=== PATIENT | male | born 1960 | race Caucasian/White ===

== ENCOUNTER 2020-07-12 10:58 | Emergency (ER) | payer SELFPAY ==
[2020-07-12 11:37] VITALS: BP 185/83; PULSE 82; RESP 18; TEMP 37.6; O2SAT 98; BMI 59.8
--- NOTE | 2020-07-12 11:59 | ED_ITS ---
HPI - Male Genitourinary General Chief complaint: Urogenital-Male Stated complaint: URINARY ISSUE Time Seen by Provider: 07/12/20 11:59 Source: patient Mode of arrival: ambulatory Limitations: no limitations History of Present Illness HPI Narrative: urinating blood at times. intermittent, then cleared. Then developed dysuria, patient has never been told that he has a prostate problem. Now with increased difficulty urinating. Related Data Previous Rx's Medication Instructions Recorded levofloxacin 500 mg PO DAILY 10 Days #10 tab 07/12/20 tamsulosin [Flomax] 0.4 mg PO DAILY #20 cap 07/12/20 Allergies Allergy/AdvReac Type Severity Reaction Status Date / Time No Known Allergies Allergy Verified 07/12/20 11:35 Review of Systems Constitutional: Constitutional: Reports no additional constitutional complaints Eyes: Eyes: Reports no additional eye complaints ENT: Denies dizziness Cardiovascular: Cardiovascular: Reports no additional cardiovascular complaints Respiratory: Respiratory: Reports as per HPI Gastrointestinal: Gastrointestinal: Reports no additional gastrointestinal complaints Musculoskeletal: Musculoskeletal: Reports no additional musculoskeletal complaints Integumentary/Breasts: Skin/Breast: Denies rash Neurologic: Reports system reviewed and no additional complaints, except as documented, Denies dizziness and Denies Sensory deficit (Neuro) Psychiatric: Psychiatric: Denies anxiety [facility] Past Medical History Medical History (Updated 07/12/20 @ 14:50 by Nico Amezcua MD) Healthy adult Social History Social History Advance Directives: No Advance Directives Information Provided: No Physical Exam Vital Signs: Vital Signs: Last Vital Signs Temp 99.6 F 07/12/20 11:37 Pulse 82 07/12/20 11:37 Resp 18 07/12/20 11:37 BP 185/83 H 07/12/20 11:37 Pulse Ox 98 07/12/20 11:37 Body Mass Index 59.8 Const: General: healthy appearing Nutritional Appearance: average body habitus Orientation/consciousness: oriented to person and patient oriented x3 Limitations: no limitations HENMT: Head: Yes normal to inspection Ears: external ears normal General nose exam: Normal external nose present Mouth: Normal oral and palatal mucosa present and oropharynx normal Throat: Yes posterior oropharynx normal Eyes: General: appearance normal, both eyes and all related structures Neck: Other: supple Neck: Yes normal visual inspection Chest: Chest palpation & inspection: normal inspection of the chest Resp: Auscultation: clear to auscultation bilaterally Cardio: Jugular venous distension: no JVD Rate: regular rate Rhythm: regular rhythm Heart sounds: S1 normal heart sound present and S2 normal heart sound present GI: Inspection: Yes normal to inspection Palpation (GI): Soft to palpation, nontender and No hepatosplenomegaly present Auscultation: normal bowel sounds : Other: very large prostate on rectal exam General: Yes no CVA tenderness Back/Spine/Pelvis: Back: no CVA tenderness Skin: General skin exam: no rashes or lesions noted Neuro: General: oriented to person and patient oriented x3 Cranial nerves: Yes CN's II-XII intact bilaterally Motor exam (neuro): 5/5 motor strength present throughout Sensory Exam: No Sensory deficit (Neuro) Extrem: General: Yes normal to inspection Psych: Appearance: grossly normal Course Course Course Narrative: resting comfortably will dc home MDM - Male Genitourinary MDM Narrative Medical decision making narrative: History and physical consistent with prostatis. Will start flomax and abx and follow up with urology Differential Diagnosis Differential diagnosis: Likely prostatitis Lab Data Result diagrams: 07/12/20 12:40 07/12/20 12:40 Labs: Lab Results 07/12/20 07/12/20 07/12/20 Range/Units 12:40 12:40 12:40 WBC 11.8 H (4.8-10.8) X10*3/uL RBC 4.81 (4.60-5.80) X10*6/uL Hgb 15.9 (14.0-18.0) g/dl Hct 48.1 (42-52) % MCV 100.0 H (80-98) fL MCH 33.1 H (27.0-33.0) pg MCHC 33.1 (31.0-36.0) g/dl RDW 11.1 (11.0-16.0) % Plt Count 268 (160-400) X10*3/uL MPV 12.4 (9.4-12.4) fL Immature Gran % (Auto) 0.4 (0.0-0.4) % Neut % (Auto) 78.0 H (45-73) % Lymph % (Auto) 12.2 L (20-40) % Taylor % (Auto) 7.4 (2-11) % Eos % (Auto) 1.4 (0-4) % Baso % (Auto) 0.6 (0-2) % Lymph # (Auto) 1.4 (1.2-4.9) X10*3/uL Taylor # (Auto) 0.9 (0.1-1.2) X10*3/uL Eos # (Auto) 0.2 (0.0-0.4) X10*3/uL Baso # (Auto) 0.1 (0.0-0.2) X10*3/uL Abs Immat Gran (auto) 0.05 H (0.00-0.03) X10*3/uL Absolute Neuts (auto) 9.2 H (2.0-8.3) X10*3/uL Absolute Nucleated RBC 0.000 (0.0-0.012) X10*3/uL Nucleated RBC % (auto) 0.0 (0.0-0.2) /100WBC Sodium 135 (135-145) mmol/L Potassium 4.7 (3.3-5.1) mmol/l Chloride 101 (96-108) mmol/L Carbon Dioxide 26 (22-29) mmol/L Anion Gap 13 (12-20) BUN 16 (9-16) mg/dL Creatinine 1.13 (0.5-1.4) mg/dL Estim Creat Clear Calc 99.4 Estimated GFR > 60 Random Glucose 86 (60-115) mg/dL Calcium 9.3 (8.4-10.2) mg/dL Urine Color YELLOW Urine Appearance CLOUDY Urine pH 6.0 (5.0-8.0) Ur Specific [place] >= 1.030 H (1.005-1.025) Urine Protein 2+ H (NEG-TRACE) MG/DL Urine Glucose (UA) NEG (NEG) MG/DL Urine Ketones NEG (NEG) MG/DL Urine Blood 3+ H (NEG) Urine Nitrite NEG (NEG) Ur Leukocyte Esterase 1+ H (NEG) Urine RBC 10-14 H (0) /HPF Urine WBC 15-29 H (0-4) /HPF Ur Squamous Epith Cells TRACE /LPF Urine Bacteria NONE /LPF 07/12/ Range/Units 12:40 WBC (4.8-10.8) X10*3/uL RBC (4.60-5.80) X10*6/uL Hgb (14.0-18.0) g/dl Hct (42-52) % MCV (80-98) fL MCH (27.0-33.0) pg MCHC (31.0-36.0) g/dl RDW (11.0-16.0) % Plt Count (160-400) X10*3/uL MPV (9.4-12.4) fL Immature Gran % (Auto) (0.0-0.4) % Neut % (Auto) (45-73) % Lymph % (Auto) (20-40) % Taylor % (Auto) (2-11) % Eos % (Auto) (0-4) % Baso % (Auto) (0-2) % Lymph # (Auto) (1.2-4.9) X10*3/uL Taylor # (Auto) (0.1-1.2) X10*3/uL Eos # (Auto) (0.0-0.4) X10*3/uL Baso # (Auto) (0.0-0.2) X10*3/uL Abs Immat Gran (auto) (0.00-0.03) X10*3/uL Absolute Neuts (auto) (2.0-8.3) X10*3/uL Absolute Nucleated RBC (0.0-0.012) X10*3/uL Nucleated RBC % (auto) (0.0-0.2) /100WBC Sodium (135-145) mmol/L Potassium (3.3-5.1) mmol/l Chloride (96-108) mmol/L Carbon Dioxide (22-29) mmol/L Anion Gap (12-20) BUN (9-16) mg/dL Creatinine (0.5-1.4) mg/dL Estim Creat Clear Calc Estimated GFR Random Glucose (60-115) mg/dL Calcium (8.4-10.2) mg/dL Urine Color Cancelled Urine Appearance Cancelled Urine pH Cancelled (5.0-8.0) Ur Specific [place] Cancelled (1.005-1.025) Urine Protein Cancelled (NEG-TRACE) MG/DL Urine Glucose (UA) Cancelled (NEG) MG/DL Urine Ketones Cancelled (NEG) MG/DL Urine Blood Cancelled (NEG) Urine Nitrite Cancelled (NEG) Ur Leukocyte Esterase Cancelled (NEG) Urine RBC (0) /HPF Urine WBC (0-4) /HPF Ur Squamous Epith Cells /LPF Urine Bacteria /LPF Discharge Plan Discharge Clinical Impression: Prostatitis Qualifiers: Prostatitis type: chronic Qualified Code(s): N41.1 - Chronic prostatitis Benign prostatic hyperplasia Qualifiers: Lower urinary tract symptom presence: symptoms present Lower urinary tract symptom detail: urinary frequency Qualified Code(s): N40.1 - Benign prostatic hyperplasia with lower urinary tract symptoms Patient Disposition: Home, Self-Care Instructions: Prostatitis (ED), Enlarged Prostate (BPH) (ED) Prescriptions: New levofloxacin 500 mg tablet 500 mg PO DAILY 10 Days Qty: 10 RF: 0 tamsulosin [Flomax] 0.4 mg capsule 0.4 mg PO DAILY Qty: 20 RF: 0 Referrals: Elvis Rojas MD [Physician] - 2 days
[2020-07-12 12:50] LABS: MANUAL DIFF FLAG NO
[2020-07-12 12:52] LABS: Basophils Absolute Auto 0.1 X10*3/uL (0.0-0.2); Basophils Percent Auto 0.6 % (0-2); Eosinophils Absolute Auto 0.2 X10*3/uL (0.0-0.4); Eosinophils Percent Auto 1.4 % (0-4); Hematocrit 48.1 % (42-52); Hemoglobin 15.9 g/dl (14.0-18.0); Imm Gran Abs Auto 0.05 X10*3/uL (0.00-0.03); Imm Gran Pct Auto 0.4 % (0.0-0.4); Lymphocytes Absolute Auto 1.4 X10*3/uL (1.2-4.9); Lymphocytes Percent Auto 12.2 % (20-40); Mean Corpuscular HGB Conc 33.1 g/dl (31.0-36.0); Mean Corpuscular Hemoglobin 33.1 pg (27.0-33.0); Mean Platelet Volume 12.4 fL (9.4-12.4); Monocytes Absolute Auto 0.9 X10*3/uL (0.1-1.2); Monocytes Percent Auto 7.4 % (2-11); Neutrophils Absolute Auto 9.2 X10*3/uL (2.0-8.3); Platelet Count 268 X10*3/uL (160-400); Red Blood Count 4.81 X10*6/uL (4.60-5.80); Red Cell Distribution Width 11.1 % (11.0-16.0); White Blood Count 11.8 X10*3/uL (4.8-10.8)
[2020-07-12 13:06] LABS: Glucose Urine UA NEG (NEG); Leukocyte Esterase Urine 1+ (NEG); Nitrite Urine NEG (NEG); Specific Gravity - Urine >= 1.030 (1.005-1.025); Urine Blood 3+ (NEG); Urine Ketones NEG (NEG); Urine Protein 2+ MG/DL (NEG-TRACE)
[2020-07-12 13:08] LABS: Appearance Urine CLOUDY; Color Urine YELLOW
[2020-07-12 13:13] LABS: Anion Gap 13 (12-20); Blood Urea Nitrogen 16 mg/dL (9-16); Calcium 9.3 mg/dL (8.4-10.2); Carbon Dioxide 26 mmol/L (22-29); Chloride 101 mmol/L (96-108); Creatinine Clr Calc Pharmacy 99.4; Estimated Glomerular Filt Rate > 60; Glucose Random 86 mg/dL (60-115); Potassium 4.7 mmol/l (3.3-5.1); Sodium 135 mmol/L (135-145)
[2020-07-12 13:21] LABS: Squamous Epithelial Cell Urine TRACE /LPF
== END 2020-07-12 15:13 | disposition home or self-care (01) ==
PROVIDERS: Emergency Provider Emergency Medicine
DX: N41.1 Chronic prostatitis (principal); N40.1 Benign prostatic hyperplasia with lower urinary tract symptoms; R30.0 Dysuria; Z79.899 Other long term (current) drug therapy
CPT/HCPCS: 36415; 80048; 81001; 81003; 85025; 87086; 99283

== ENCOUNTER 2020-07-26 10:45 | Outpatient (REF) | payer MEDICAID, SELFPAY | END 2020-07-26 10:46 | disposition home or self-care (01) | LOC: CF 10:45 | PROVIDERS: Visit Provider Urology | DX: N40.1 Benign prostatic hyperplasia with lower urinary tract symptoms (principal); N13.8 Other obstructive and reflux uropathy; R31.0 Gross hematuria | CPT/HCPCS: 51798; 81002; 88112; 99202 ==

== ENCOUNTER → 2020-08-25 12:50 | Outpatient (BNVA) | payer MEDICAID, SELFPAY | PROVIDERS: Visit Provider Urology | DX: N40.1 Benign prostatic hyperplasia with lower urinary tract symptoms (principal); N39.0 Urinary tract infection, site not specified; N13.8 Other obstructive and reflux uropathy; R31.0 Gross hematuria | CPT/HCPCS: 81002; 99212 ==

== ENCOUNTER 2020-08-30 15:01 | Outpatient (REF) | payer MEDICAID, SELFPAY | END 2020-08-30 15:02 | disposition home or self-care (01) | LOC: HO.LNP 15:01 | PROVIDERS: Visit Provider Urology | DX: N39.0 Urinary tract infection, site not specified (principal) | CPT/HCPCS: 87086 ==

== ENCOUNTER 2020-09-13 11:04 | Outpatient (REF) | payer MEDICAID, SELFPAY | END 2020-09-13 11:05 | disposition home or self-care (01) | LOC: HO.LAB 11:04 | PROVIDERS: Visit Provider Urology | DX: N39.0 Urinary tract infection, site not specified (principal) | CPT/HCPCS: 87086 ==

== ENCOUNTER → 2020-09-30 08:41 | Outpatient (BNVA) | payer MEDICAID, SELFPAY | PROVIDERS: PCP Internal Medicine; Visit Provider Urology | DX: R31.0 Gross hematuria (principal); N39.0 Urinary tract infection, site not specified; N40.1 Benign prostatic hyperplasia with lower urinary tract symptoms; N13.8 Other obstructive and reflux uropathy | CPT/HCPCS: 81002; 99212 ==

== ENCOUNTER 2020-10-07 14:57 | Outpatient (REF) | payer MEDICAID, SELFPAY ==
--- NOTE | ~2020-10-07 | CT_ITS ---
EXAMINATION: CT ABDOMEN AND PELVIS WITHOUT AND WITH CONTRAST CLINICAL INFORMATION: Gross hematuria COMPARISON: None. TECHNIQUE: Noncontrast CT of the abdomen and pelvis is performed followed by split bolus contrast-enhanced images using 85 mL Omnipaque 350 contrast.? Postcontrast imaging is performed during the combined nephrogram and excretion phase. Sagittal and coronal reformatted images were obtained on the technologist's workstation for both the precontrast and postcontrast phases. This CT examination was performed using dose optimization techniques as appropriate, variously including the following: *Automated exposure control *Adjustment of mA and/or kV according to patient size (this includes techniques or standardized protocols for targeted exams where dose is matched to indication/reason for exam; i.e. extremities or head) *Use of iterative reconstruction technique DLP: 508 mGy-cm FINDINGS: LUNG BASES: The visualized lung bases are clear. There is a trace pericardial effusion. LIVER, GALLBLADDER, AND BILIARY TREE: The liver is normal in size, shape, and attenuation. No focal hepatic lesion or biliary ductal dilatation is present. The gallbladder is unremarkable with no evidence of radiopaque gallstones, gallbladder wall thickening, or obvious pericholecystic inflammatory changes. PANCREAS: Unremarkable. SPLEEN: There are 2 small peritoneal nodules anterior the spleen measuring 5 and 3 mm axial image 11 series 8 questionable for splenules. ADRENAL GLANDS: Unremarkable. KIDNEYS AND URETERS: The right kidney measures 9 and the left 12 cm in length. There is mild right renal cortical thinning. There is severe right hydronephrosis and ureteral dilatation down to the bladder. There is no excretion of contrast opacifying the right renal collecting system or ureter. There is no left hydronephrosis. There is mild dilatation of the left distal ureter. There is marked irregularity and narrowing of the left distal ureter in the wall of the bladder. No renal stone, mass or hydronephrosis is seen. BLADDER: There is high attenuation material in the bladder precontrast suggestive of hemorrhage. There is a large partially necrotic bladder mass along the right lateral, inferior and posterior bladder wall. This obstructs the right distal ureter. This involves the left ureteral insertion and narrows this as well.. This is irregular in shape and difficult to measure but measures at least 7 cm. This is irregular in shape with the excreted contrast in the bladder suggestive of a fungating or ulcerative lesion. There is extensive infiltration of the perivesicular fat. No definite enlarged perivesicular lymph nodes are seen. GASTROINTESTINAL TRACT: The small and large bowel are unremarkable. The appendix is unremarkable. ABDOMINAL WALL: There is a small umbilical hernia containing fat. LYMPH NODES: There is a prominent left internal iliac lymph node measuring 8 mm axial image 57 series 8. There are small right iliac bifurcation or pelvic sidewall lymph nodes largest measuring 5 mm axial image 56 series 8. VASCULAR: There is evidence of atherosclerotic disease. PELVIC VISCERA: The prostate gland is enlarged measuring approximately 4 x 4.4 cm in AP and transverse dimension. The prostate gland is irregularly shaped and protrudes into the base of the bladder. There are calcifications in the central prostate gland. OSSEUS STRUCTURES: There is severe degenerative disc disease with endplate sclerosis at L5-S1. There are degenerative spondylosis of the lumbar spine and degenerative changes at the hip joints. No fracture or suspicious bone lesion is seen. CT/CT urogram IMPRESSION: Large bladder mass and infiltration of the perivesicular fat suggestive of neoplasm. There is obstruction of the right kidney with moderate right hydronephrosis and ureteral dilatation and no excreted contrast seen in the right collecting system or ureter. This narrows the intramural portion of the left distal ureter and there is mild left distal ureteral dilatation. There are bilateral retroperitoneal pelvic lymph nodes, largest measuring 8 mm on the left. Slightly enlarged irregularly-shaped prostate gland which protrudes into the base of the bladder. Prostate neoplasm cannot be excluded.
[2020-10-07] MEDS: iohexoL 350 MG/ML 100 ML INFUS..BTL 85 ML IV (15:53)
== END 2020-10-07 14:58 | disposition home or self-care (01) ==
LOC: HO.CT 14:57
PROVIDERS: PCP Internal Medicine; Visit Provider Urology
DX: R31.0 Gross hematuria (principal)
CPT/HCPCS: 74178; Q9967

== ENCOUNTER → 2020-10-11 13:47 | Outpatient (BNVA) | payer MEDICAID, SELFPAY | PROVIDERS: PCP Internal Medicine; Visit Provider Urology | DX: Z13.89 Encounter for screening for other disorder (principal) | CPT/HCPCS: 99212 ==

== ENCOUNTER 2020-10-31 07:03 | Day surgery (SDC) | payer MEDICAID, SELFPAY ==
[2020-10-27 09:41] VITALS: BMI 25.7
[2020-10-31] VITALS (21 sets, daily range): BP systolic 127–200; BP diastolic 85–116; PULSE 73–122; RESP 6–131; TEMP 36.1–37; O2SAT 97–100
[2020-10-31] MEDS: levoFLOXacin 500 MG TABLET PO (08:06)
--- NOTE | 2020-10-31 08:27 | HO.ANESPROP2 ---
PMF Active Problems Active Problems: All Active Problems (Updated 10/11/20 @ 14:45 by Elvis Rojas MD) Gross hematuria (Acute) BPH w urinary obs/LUTS (Acute) Recurrent UTI (Acute) Bladder cancer (Acute) Hydronephrosis (Acute) Past Medical History Medical History Healthy adult Hx of smoking Social History Social History Smoking Status: Current every day smoker Advance Directives Information Provided: No Meds Allergies Allergy/AdvReac Type Severity Reaction Status Date / Time No Known Allergies Allergy Verified 09/30/20 09:06 Active Medications: Current Medications Generic Name Dose Route Start Last Admin Trade Name Freq PRN Reason Stop Dose Admin Lactated Ringer's 1,000 mls @ 50 mls/hr 10/31/20 08:30 Lr IV .Q20H JOSIAH Exam Exam Date and Time: October 31, 2020 0827 Height,Weight and Vital Signs: Height 5 ft 4 in Weight 68.039 kg Last Vital Signs Temp 98.6 F 10/31/20 07:57 Pulse 122 H 10/31/20 07:57 Resp 18 10/31/20 07:57 BP 127/90 H 10/31/20 07:57 Pulse Ox 100 10/31/20 07:57 Airway Mallampati Class: III (Poor dentition) TM Dist: >3cm Neck ROM: Full Heart: RrR Lungs: CTA BL Assessment and Plan Assessment Anesthesia Assessment: Anesthesia Plan Discussed and Chart Reviewed Final Anesthetic Review NPO: Yes ASA Class: III Patient Risk: Intermediate Procedure Risk: Intermediate Anesthetic Plan Anesthetic Plan: GA Disposition: Standard PACU
[2020-10-31] MEDS: Lactated Ringers 1,000 ML 50 ML IV (08:36)
--- NOTE | 2020-10-31 09:13 | MHC.SHP ---
Pre-Procedural Eval Section A The patient is an INPATIENT: No Changes since office visit: No Cold of Flu in the past 2 weeks, No New Medical Problems, No Changes in Medication and No Patient answered all questions The History & Physical has been completed within 30 days and I have reviewed it.: Yes Section B Chief Complaint: malignant neoplasm of bladder Allergies: Allergies Allergy/AdvReac Type Severity Reaction Status Date / Time No Known Allergies Allergy Verified 09/30/20 09:06 Plan Diagnosis/Plan: Unchanged I have reviewed the history and physical and performed a pertinent physical examination on my patient. No changes have occurred unless specified. Transurethral bladder tumor resection, bilateral retrogrades potential bilateral stents
--- NOTE | 2020-10-31 10:57 | PM.OP ---
Brief Operative Note Date of Service: 10/31/20 Pre-op diagnosis: Bladder cancer and bilateral hydronephrosis Post-op diagnosis: same Procedure: 1. TURBT large 2. Left retrograde stent placement Implants: Left ureteric stent Surgeon: Elvis Rojas MD Anesthesia: GLMA Estimated blood loss (mL): 10 Pathology: other (bladder) Condition: stable Disposition: same day
--- NOTE | 2020-10-31 11:02 | W.PM.OPN ---
Operative Note Operative Note Date of Service: 10/31/20 Narrative: PreOperative Diagnosis: Bladder cancer with bilateral hydronephrosis Post Operative Diagnosis: Bladder cancer with bilateral hydronephrosis Procedure: 1 TURBT large 2. Left retrograde with left stent placement Surgeon: Dr Elvis Rojas Anesthesia: General Indications for procedure: This is a 60-year-old female who presented to the emergency room in mid July 2020 with gross hematuria. Had been seen in the office but secondary to insurance issues was not able to get CT urogram until beginning of September. Imaging showed a large 6-7 cm mass in the bladder with right hydronephrosis and the starting of left hydronephrosis. There appeared to be perivesical fat invasion. At a minimum this was a clinical T3 lesion. Due to the persistent hematuria and bladder infection recommendation was made for debulking with TURBT. Attempt will be made to place bilateral stents in order to assess for chemotherapy. Procedure: After informed consent was verified the patient was brought to the operating room and placed in a supine position. Anesthesia was administered per protocol. The patient was placed in a modified dorsal lithotomy position and prepped and draped in a sterile fashion. Safety pause time-out was performed. Antibiotics have been given. A well lubricated resectoscope was placed with visual obturator per urethra. There was difficulty entering the bladder. There was a large lobulated mass extending from the right side wall down into prostatic fossa. Prostatic fossa appeared to event previous resection. Mass in his changes seemed to extend from the right side wall down across the midline toward the left side in the area of the trigone. Extensive resection was performed. Great care was taken to keep to the contours of the bladder. The final resected area ran from 2 cm medial of the left ureteric orifice to the 11 o'clock position high on the right bladder wall. It extended from the bladder neck back be on the trigone a total approximately 10 cm. The bladder mucosa throughout was inflamed. It was difficult to tell whether this inflamed tissue was part of the carcinoma process but it appeared to be separate. A large amount of specimen was sent. Total resection time was 100% longer than normal at approximately 01:00 hour. After the extensive resection where identify the left ureteric orifice. This was cannulated and retrograde examination performed. A 6 Gambian by 22 cm double-J ureteric catheter was placed. We were unable to find the right ureteric orifice which was obliterated by the cancer process. The whole area had invasive cancer going to the floor the bladder. At the completion of the resection we used a roller bar in order to obtain sufficient control of anticoagulation. At the completion of the procedure a Omrales catheter was placed without difficulty. He tolerated procedure was extubated in the operating room transferred in stable condition to the recovery area. Pathology: Bladder tumor Drains: Left ureteric stent
[2020-10-31] MEDS: fentaNYL citrate/PF 100 MCG/2 ML VIAL 25 MCG IVPUSH ×4 (11:26→12:30)
[2020-10-31] MEDS: Metoprolol Tartrate 5 MG/5 ML VIAL 2.5 MG IVPUSH ×2 (11:48→13:59)
[2020-10-31] MEDS: Acetaminophen 325 MG TABLET 650 MG PO (11:56)
[2020-10-31] MEDS: oxyCODONE HCl Immed Release 5 MG TABLET PO (11:57)
== END 2020-10-31 15:07 | disposition home or self-care (01) ==
PROVIDERS: PCP Internal Medicine; Visit Provider Urology
PROC: 0TBB8ZZ Excision of Bladder, Via Natural or Artificial Opening Endoscopic (ICD-10-PCS; CPT 52240; principal; 2020-10-31 08:30)
DX: C67.9 Malignant neoplasm of bladder, unspecified (principal); N13.30 Unspecified hydronephrosis; R31.0 Gross hematuria; Z87.891 Personal history of nicotine dependence
CPT/HCPCS: 52240; 52332; 88307; 88341; 88342; C1769; C2617; J1100; J2250; J2405; J3010; Q9967

== ENCOUNTER → 2020-11-03 08:45 | Outpatient (BNVA) | payer MEDICAID, SELFPAY | PROVIDERS: PCP Internal Medicine; Visit Provider Urology | DX: C67.9 Malignant neoplasm of bladder, unspecified (principal); N13.30 Unspecified hydronephrosis | CPT/HCPCS: 99212 ==

== ENCOUNTER → 2020-11-10 08:59 | Outpatient (BNVA) | payer MEDICAID, SELFPAY | PROVIDERS: PCP Internal Medicine; Visit Provider Urology | DX: C67.9 Malignant neoplasm of bladder, unspecified (principal) | CPT/HCPCS: 99212 ==

== ENCOUNTER 2020-11-11 07:06 | Day surgery (SDC) | payer MEDICAID, SELFPAY ==
--- NOTE | ~2020-11-11 | IR_ITS ---
EXAMINATION: IR FLUOROSCOPY NEPHROSTOGRAM CLINICAL INFORMATION: Bladder cancer. Right hydronephrosis. COMPARISON: Previous CT urogram September 2020 TECHNIQUE: Procedure, risks and benefits including bleeding, infection and injury to the kidney were obtained, and informed consent was obtained. The patient was positioned in the prone position. The right flank was prepped and draped in the usual sterile fashion. Using ultrasound guidance and a 22-gauge Chiba needle, right lower pole calyceal access was obtained. Over an .018 wire, an AccuStick system was positioned in the renal pelvis. An .035 Glidewire was advanced through the 6-Faroese dilator down the right ureter. The Glidewire was exchanged for an 035 heavy duty wire. Following serial dilatation, an 8.5-Faroese pigtail nephrostomy tube was positioned. Catheter was positioned in the renal pelvis. Urine was sent for culture and cytology. A formal ultrasound picture was recorded. FINDINGS: The right kidney appears small. There is mild right hydronephrosis. There is mild right ureteral dilatation. No contrast enters the bladder. A left internal ureteral stent is seen. FLUOROSCOPY TIME: 10.6 minutes. The patient received Versed 3 mg and fentanyl 150 mcg intravenously during the procedure. Total sedation time was 40 minutes. Conscious sedation was provided by a registered nurse under my direct supervision monitored the patient's vital signs during the procedure. . DOSE AREA PRODUCT: 1072 mGy-cm2 IR/IR us guide venous access IMPRESSION: 8.5-Faroese right nephrostomy tube placement.
--- NOTE | ~2020-11-11 | IR_ITS ---
EXAMINATION: IR FLUOROSCOPY NEPHROSTOGRAM CLINICAL INFORMATION: Bladder cancer. Right hydronephrosis. COMPARISON: Previous CT urogram September 2020 TECHNIQUE: Procedure, risks and benefits including bleeding, infection and injury to the kidney were obtained, and informed consent was obtained. The patient was positioned in the prone position. The right flank was prepped and draped in the usual sterile fashion. Using ultrasound guidance and a 22-gauge Chiba needle, right lower pole calyceal access was obtained. Over an .018 wire, an AccuStick system was positioned in the renal pelvis. An .035 Glidewire was advanced through the 6-Faroese dilator down the right ureter. The Glidewire was exchanged for an 035 heavy duty wire. Following serial dilatation, an 8.5-Faroese pigtail nephrostomy tube was positioned. Catheter was positioned in the renal pelvis. Urine was sent for culture and cytology. A formal ultrasound picture was recorded. FINDINGS: The right kidney appears small. There is mild right hydronephrosis. There is mild right ureteral dilatation. No contrast enters the bladder. A left internal ureteral stent is seen. FLUOROSCOPY TIME: 10.6 minutes. The patient received Versed 3 mg and fentanyl 150 mcg intravenously during the procedure. Total sedation time was 40 minutes. Conscious sedation was provided by a registered nurse under my direct supervision monitored the patient's vital signs during the procedure. . DOSE AREA PRODUCT: 1072 mGy-cm2 IR/IR nephrostomy IMPRESSION: 8.5-Faroese right nephrostomy tube placement.
[2020-11-11 07:15] VITALS: BMI 23.1
--- NOTE | 2020-11-11 07:28 | PC.NURSE ---
0712am called for lab. 0725 recalled for lab draw.
[2020-11-11 07:40] LABS: MANUAL DIFF FLAG NO
[2020-11-11 07:42] LABS: Basophils Absolute Auto 0.1 X10*3/uL (0.0-0.2); Basophils Percent Auto 0.9 % (0-2); Eosinophils Absolute Auto 0.1 X10*3/uL (0.0-0.4); Eosinophils Percent Auto 1.1 % (0-4); Hematocrit 42.2 % (42-52); Hemoglobin 13.7 g/dl (14.0-18.0); Imm Gran Abs Auto 0.06 X10*3/uL (0.00-0.03); Imm Gran Pct Auto 0.5 % (0.0-0.4); Lymphocytes Absolute Auto 1.3 X10*3/uL (1.2-4.9); Lymphocytes Percent Auto 10.2 % (20-40); Mean Corpuscular HGB Conc 32.5 g/dl (31.0-36.0); Mean Corpuscular Hemoglobin 30.8 pg (27.0-33.0); Mean Corpuscular Volume 94.8 fL (80-98); Mean Platelet Volume 11.8 fL (9.4-12.4); Monocytes Absolute Auto 1.1 X10*3/uL (0.1-1.2); Monocytes Percent Auto 8.5 % (2-11); Neutrophils Absolute Auto 9.9 X10*3/uL (2.0-8.3); Neutrophils Percent Auto 78.8 % (45-73); Platelet Count 331 X10*3/uL (160-400); Red Blood Count 4.45 X10*6/uL (4.60-5.80); Red Cell Distribution Width 11.9 % (11.0-16.0); White Blood Count 12.5 X10*3/uL (4.8-10.8)
[2020-11-11 07:48] LABS: INTERNATIONAL NORM RATIO 1.1 (0.9-1.1); Prothrombin Time 13.1 SEC (10.8-13.0)
[2020-11-11 07:50] LABS: Partial Thromboplastin Time 36.6 SEC (24.1-38.0)
[2020-11-11 08:01] LABS: Anion Gap 19 (12-20); Blood Urea Nitrogen 18 mg/dL (9-16); Carbon Dioxide 24 mmol/L (22-29); Chloride 98 mmol/L (96-108); Creatinine Clr Calc Pharmacy 54.8; Estimated Glomerular Filt Rate > 60; Sodium 137 mmol/L (135-145)
--- NOTE | 2020-11-11 10:14 | HO.RADPN ---
RADIOLOGY Narrative Narrative: Right 8.5 Fr nephrostomy tube placed. Small scarred right kidney with mild hydronephrosis. No contrast gets to bladder.
[2020-11-11 10:20] VITALS: BP 147/86; PULSE 96; RESP 20; TEMP 37.1; O2SAT 97
[2020-11-11 10:35] VITALS: BP 127/82; PULSE 91; RESP 16; O2SAT 98
[2020-11-11] MEDS: iohexoL 300 MG/ML 50 ML INFUS..BTL IV (10:39)
[2020-11-11] MEDS: oxyCODONE HCl Immed Release 5 MG TABLET PO (10:40)
[2020-11-11] MEDS: Lidocaine HCl 1 % MPF 5 ML VIAL 10 ML SUBCUT (10:40)
[2020-11-11] MEDS: Acetaminophen 325 MG TABLET 650 MG PO (10:41)
[2020-11-11 10:50] VITALS: BP 136/83; PULSE 86; RESP 16; O2SAT 97
[2020-11-11 11:05] VITALS: BP 122/76; PULSE 90; RESP 16; O2SAT 97
[2020-11-11 11:20] VITALS: BP 139/81; PULSE 94; O2SAT 97
[2020-11-11 14:57] LABS: Urine Cytology See Pathology rpt
== END 2020-11-11 11:41 | disposition home or self-care (01) ==
PROVIDERS: Radiology Diagnostic Radiology; PCP Internal Medicine; Visit Provider Radiology Diagnostic Radiology
DX: N13.30 Unspecified hydronephrosis (principal); C67.9 Malignant neoplasm of bladder, unspecified; F17.200 Nicotine dependence, unspecified, uncomplicated
CPT/HCPCS: 36415; 50432; 76937; 80051; 82565; 84520; 85025; 85610; 85730; 87086; 88112; 99152; 99153; C1729; C1769; C1894; J0690; J2250; J3010; Q9967

== ENCOUNTER → 2020-11-25 14:55 | Outpatient (BNVA) | payer MEDICAID, SELFPAY | PROVIDERS: PCP Internal Medicine; Visit Provider Urology ==

== ENCOUNTER 2024-03-04 14:34 | Outpatient (REF) | payer MEDICAID, SELFPAY ==
[2024-03-04 16:11] LABS: Lymphocytes Absolute Auto 0.9 X10*3/uL (1.2-4.9); SCAN SMEAR FLAG 1
[2024-03-04 16:12] LABS: Basophils Percent Auto 0.3 % (0-2); Eosinophils Absolute Auto 0.2 X10*3/uL (0.0-0.4); Hematocrit 45.1 % (42.0-52.0); Hemoglobin 15.1 g/dl (14.0-18.0); Imm Gran Abs Auto 0.04 X10*3/uL (0.00-0.03); Imm Gran Pct Auto 0.4 % (0.0-0.4); Lymphocytes Percent Auto 9.6 % (20-40); MANUAL DIFF FLAG SCAN; Mean Corpuscular HGB Conc 33.5 g/dl (31.0-36.0); Mean Corpuscular Hemoglobin 33.3 pg (27.0-33.0); Mean Corpuscular Volume 99.3 fL (80.0-98.0); Mean Platelet Volume 13.7 fL (9.4-12.4); Monocytes Absolute Auto 1.1 X10*3/uL (0.1-1.2); Monocytes Percent Auto 11.2 % (2-11); Neutrophils Absolute Auto 7.4 x10*3/uL (2.0-8.3); Neutrophils Percent Auto 76.5 % (45-73); PLT CLUMP 1; Red Blood Count 4.54 X10*6/uL (4.60-5.80); Red Cell Distribution Width 12.2 % (11.0-16.0)
[2024-03-04 16:16] LABS: C Reactive Protein 8.76 mg/dL (< or = 0.50)
[2024-03-04 16:20] LABS: PLT ABN DIST 1
[2024-03-04 16:24] LABS: Appearance Urine Clear; Color Urine Yellow; Glucose Urine UA Negative (Negative); Leukocyte Esterase Urine Trace (Negative); Nitrite Urine Negative (Negative); PH 5.5 (5.0-9.0); UMIC TRIGGER UACC YES; Urine Blood Small (1+) (Negative); Urine Ketones Trace mg/dL (Negative); Urine Protein 100 (2+) mg/dL (Neg-Trace)
[2024-03-04 16:38] LABS: Bacteria Urine None Seen (None Seen); Hyaline Casts Urine 0-2 /LPF (0-2); RBC Urine 0-2 /HPF (0-2); Squamous Epithelial Cell Urine 0-2 /HPF (0-2); WBC Urine 0-5 /HPF (0-5)
[2024-03-04 16:55] LABS: Platelet Count 203 X10*3/uL (160-400); SLIDE REVIEW VERIFIED; White Blood Count 9.7 X10*3/uL (4.8-10.8)
[2024-03-04 17:13] LABS: Erythrocyte Sedimentation Rate 66 MM/HR (0-15)
== END 2024-03-04 14:35 | disposition home or self-care (01) ==
LOC: HO.HHCL 14:34
PROVIDERS: Visit Provider Internal Medicine
DX: K57.92 Diverticulitis of intestine, part unspecified, without perforation or abscess without bleeding (principal); N30.90 Cystitis, unspecified without hematuria
CPT/HCPCS: 36415; 81001; 85025; 85652; 86140

== ENCOUNTER 2025-02-03 15:58 | Outpatient (REF) | payer MEDICARE, SELFPAY | END 2025-02-03 15:59 | disposition home or self-care (01) | LOC: HO.HHCLNP 15:58 | PROVIDERS: Visit Provider Registered Nurse | DX: R10.9 Unspecified abdominal pain (principal) | CPT/HCPCS: 87086 ==

== ENCOUNTER 2025-08-05 10:20 | Outpatient (AMB) | payer MEDICARE, SELFPAY ==
--- NOTE | 2025-08-05 10:37 | A.OFFVIS_ITS ---
Vital Signs 08/05/25 10:50 Weight 161 lb 4 oz Intake Visit Reasons: HX bladder CA, colovesical fistual Intake Note: Patient presents for an assessment for colovesical fistula, Hx bladder CA. Pt c/o; stool in the urine, reports he notices more stool in the urine when sitting down, Hx bladder CA, completed x2 courses of abx. Materials Manager Required: No Accompanied by: Family/Other Allergies No Known Allergies Allergy (Verified 08/05/25 10:52) Medication List - Last Reconciled 08/05/25 by Lobito Lowe MD ciprofloxacin HCl 500 mg PO BID 4 days finasteride 5 mg PO DAILY 90 days levofloxacin 500 mg PO DAILY 10 days oxybutynin chloride 5 mg PO BID PRN oxycodone-acetaminophen 5-325 mg (Percocet) 1 tab PO Q8H PRN 7 days sulfamethoxazole-trimethoprim 800-160 mg (Bactrim DS) 1 tab PO BID 7 days tamsulosin (Flomax) 0.4 mg PO DAILY tamsulosin 0.4 mg PO DAILY 90 days tamsulosin 0.4 mg PO BEDTIME tramadol 50 mg PO Q6H PRN trimethoprim 100 mg PO Q12H 10 days HPI HPI HX bladder CA, colovesical fistual: Details: 65-year-old male referred for a colovesical fistula. He has a known bladder cancer. He had been diagnosed with this in 2020. He had undergone multiple cystoscopies was this along with chemotherapy and radiation in [place]. He states that about a year ago, he was in the ER for what was presumed to be diverticulitis. He says he was told at that time that he has a colovesical fistula No surgical intervention was done then as he was deemed to be asymptomatic. However, the past few weeks, he had been noticing passage of air and stool particles with this urine. He was referred by urologist to a surgeon in [place] and he was told that he will need resection and likely colostomy which may be permanent. He came to me for a 2nd opinion He does state that he noticed this has this has of stool particles as well as gas with urination. He denies any abdominal pain. Denies any fever or chills. [facility] Medical History (Updated 08/05/25 @ 11:24 by Lobito Lowe MD) Colovesical fistula Hx of smoking Healthy adult Family History Other Family history unknown Social History Unable to assess alcohol history related to: Unknown Patient Tobacco Use Status: Tobacco use Unknown Review of Systems Const Denies chills and Denies fever(s) Card Denies chest pain, Denies dyspnea and Denies dyspnea on exertion Resp Denies cough, Denies dyspnea and Denies dyspnea on exertion GI Denies hematochezia and Denies change in bowel habits Denies hematuria and Denies difficulty urinating Musc Denies back pain and Denies limited range of motion Neuro Denies focal weakness and Denies convulsions Psych Denies depression and Denies mood swings Physical Exam Const General: comfortable and no acute distress Orientation/consciousness: patient oriented x3 Neck Neck: Yes no lymphadenopathy Resp Auscultation: clear to auscultation bilaterally Cardio Rhythm: regular rhythm GI Palpation (GI): Soft to palpation, nontender and no guarding Neuro General: patient oriented x3 Assessment & Plan Assessment & Plan (1) Colovesical fistula: Code(s): 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 He has been passing stool particles as well as area with this urine for about a couple of weeks now. He denies any dysuria or fever or chills. He had been seen by a surgeon in [place] about resection for this colovesical fistula I did tell him that I would agree with this intervention as he will be at risk for UTIs and sepsis. I reviewed with him that this would require resection of the involved segment of the sigmoid, and likely repair of the bladder. In view of his previous radiation, he is likely to need a colostomy which may or may not be permanent depending on his clinical course. He is at risk for anastomotic breakdown and tissue breakdown of any bladder repair in view of his radiation. I therefore told him that I would recommend the balloon resection to be done in the presence of his urologist as repair of the bladder he will likely be necessary. Unfortunately, his urologist do not work here in [place]. He states that he does not want the urology service here in [place] to be involved with his care. He also says that he was referred to [place] for management of this colovesical fistula but he has not heard from his urologist about this. He had also been referred to [facility] in [place] but he says that this has tolerance was not being accepted by then I told him therefore that he really should have this colovesical fistula manage soon because of the risk of urosepsis. I instructed him to reach out to his urologist about this. Coding Level of Care Code New Pt Level 4 (29694) Diagnoses Colovesical fistula N32.1
== END 2025-08-05 11:19 | disposition home or self-care (01) ==
LOC: HO.HGS 10:20
PROVIDERS: PCP Internal Medicine Geriatric Medicine; Visit Provider Surgery
DX: N32.1 Vesicointestinal fistula (principal)
CPT/HCPCS: 99204

== ENCOUNTER → 2025-08-05 10:20 | Outpatient (BNVA) | payer MEDICARE, SELFPAY | PROVIDERS: PCP Internal Medicine Geriatric Medicine; Visit Provider Surgery | DX: N32.1 Vesicointestinal fistula (principal); C67.9 Malignant neoplasm of bladder, unspecified | CPT/HCPCS: 99202 ==